=== PATIENT | male | born 1995 | race African-American/Black ===

== ENCOUNTER 2018-06-15 08:47 | Emergency (ER) | payer OTHER ==
[~2018-06-15] VITALS: Ht 177.8 cm; Wt 72.6 kg
[2018-06-15] MEDS ORDERED: NKM (09:06)
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
[2018-06-15] MEDS ORDERED: Ketorolac 60mg Inj IM ONE (09:30)
[2018-06-15] MEDS ORDERED: IBUPROFEN600 MG ORAL (09:31)
[2018-06-15] MEDS ORDERED: NORCO 5-325 TA1 EACH ORAL (09:31)
[2018-06-15] MEDS ORDERED: CYCLOBENZAPRINE10 MG ORAL (09:32)
[2018-06-15] MEDS ORDERED: Ketorolac 30mg Inj ONE (09:38)
[2018-06-15 09:43] VITALS: BP 112/70
[2018-06-15 09:47] VITALS: BP 112/70
== END 2018-06-15 09:37 | disposition home or self-care (01) ==
LOC: EMR 09:25
DX: M25.532 Pain in left wrist (principal); M79.632 Pain in left forearm; M54.2 Cervicalgia; V43.52XA Car driver injured in collision with other type car in traffic accident, initial encounter; Y93.9 Activity, unspecified; Y92.9 Unspecified place or not applicable; Y99.9 Unspecified external cause status
CPT/HCPCS: 96372; 99283